=== PATIENT | female | born 1940 | race Hispanic/Latino ===

== ENCOUNTER 2017-05-30 10:19 | Outpatient (CLI) | payer MEDICARE ==
--- NOTE | 2017-05-30 11:22 | Mammography Report ---
Bilateral mammogram with tomosynethesis: Compared to 05/03/16. CAD study utilized. Findings: Predominance adipose tissue bilaterally. Benign bilateral calcifications. Circumscribed 4 mm new density identified subareolar left breast seen on tomosynethesis. No microcalcification. Impression: Focal asymmetry left breast. Recommend sonographic examination. BI-RADS CATEGORY: 0 = Needs additional imaging evaluation ACR BI-RADS MAMMOGRAPHIC CODES: 0 = Needs additional imaging evaluation; 1 = Negative; 2 = Benign; 3 = Probably benign; 4 = Suspicious; 5 = Malignant; 6 = Known biopsy-proven malignancy COMMENT: 1. Dense breast tissue, i.e., adenosis, fibrocystic changes, etc., may obscure an underlying neoplasm. 2. Approximately 10% of cancers are not detected with mammography. 3. A negative mammography report should not delay biopsy if a clinically suspicious mass is present. COMMENT: [facility]
--- NOTE | 2017-05-30 11:23 | Mammography Report ---
BONE DENSITY STUDY: DEFINITIONS: BMD = Bone Mineral Density T-score = BMD related to mean peak bone mass of young adult (mean expressed in Standard Deviation) Z-score = Age matched BMD expressed in SD World Health Organization (WHO) Diagnostic Criteria Normal T-score > -1 SD Osteopenia T-score between -1 and -2.4 SD Osteoporosis T-score -2.5 SD or below FINDINGS: The weighted average BMD of lumbar spine L1-L4 is 0.678 with a T-score of -3.6. The weighted average BMD of hip is 0.660 with a T-score of -2.3. IMPRESSION: The patient's T-score is diagnostic for osteoporosis and high relative risk for fracture. NOTE: BMD is not the only risk factor for fracture; also consider factors such as the patient's age, risk of falling, previous osteoporotic fracture, family history of osteoporotic fractures, current smoker, and low body weight. Jane's triangle is a region of interest in femur, predominantly of trabecular bone. It is not a true anatomic site, and [facility] does not recommend its use clinically.
== END 2017-05-30 10:20 | disposition home or self-care (01) ==
LOC: MAMMO 10:19
PROVIDERS: ATTEND Obstetrics & Gynecology
DX: Z12.31 Encounter for screening mammogram for malignant neoplasm of breast (principal); M81.0 Age-related osteoporosis without current pathological fracture
CPT/HCPCS: 77063; 77080; G0202; 77067

== ENCOUNTER 2018-01-02 09:05 | Outpatient (CLI) | payer MEDICARE, OTHER ==
--- NOTE | 2018-01-02 11:19 | Mammography Report ---
Left tomomammogram, 2-D compile mammogram, and left breast ultrasound: Short-term followup 2 left asymmetric nodule and left breast cyst in May and June 2017. Compile 2-D mammography demonstrates a heterogeneous breast pattern which is unchanged prior exam. No identifiable mass. On the CC tomomammogram the nodular area seen previously is smaller and almost imperceptible on the current exam. In the lateral images the nodule is smaller measuring 4.5 mm compared to 5.6 mm. The ultrasound findings again demonstrates a cyst in the 3:00 location currently measuring 6 mm with no solid masses. Impressions: Slightly smaller mammographic nodule. Stable left breast cyst. Recommendation: Benign findings. Annual bilateral mammogram in 6 months. BI-RADS CATEGORY: 2 = Benign ACR BI-RADS MAMMOGRAPHIC CODES: 0 = Needs additional imaging evaluation; 1 = Negative; 2 = Benign; 3 = Probably benign; 4 = Suspicious; 5 = Malignant; 6 = Known biopsy-proven malignancy COMMENT: 1. Dense breast tissue, i.e., adenosis, fibrocystic changes, etc., may obscure an underlying neoplasm. 2. Approximately 10% of cancers are not detected with mammography. 3. A negative mammography report should not delay biopsy if a clinically suspicious mass is present.
== END 2018-01-02 09:06 | disposition home or self-care (01) ==
LOC: MAMMO 09:05
PROVIDERS: ATTEND Obstetrics & Gynecology
DX: N60.02 Solitary cyst of left breast (principal); N63.20 Unspecified lump in the left breast, unspecified quadrant
CPT/HCPCS: 76642; 77065; G0279